=== PATIENT | female | born 1985 | race African-American/Black ===

== ENCOUNTER 2020-10-01 08:43 | Emergency (ER) | payer MEDICARE, MEDICAID ==
[2020-10-02 00:45] LABS: SARS-CoV-2 MS2 Positive; SARS-CoV-2 N Gene Negative; SARS-CoV-2 S Gene Negative; SARS-CoV-2 by NAA Not Detected (NotDetected); SARS-CoV-2 orf1ab Negative
== END 2020-10-01 10:00 | disposition home or self-care (01) ==
LOC: NAV ERS 08:43
DX: J02.9 Acute pharyngitis, unspecified (principal); Z20.828 Contact with and (suspected) exposure to other viral communicable diseases; F32.9 Major depressive disorder, single episode, unspecified; G43.909 Migraine, unspecified, not intractable, without status migrainosus; G35 Multiple sclerosis
CPT/HCPCS: 87635; 99283; U0003

== ENCOUNTER 2020-12-16 10:32 | Emergency (ER) | payer MEDICAID ==
[2020-12-16] MEDS ORDERED: Sodium Chloride 0.9% 1,000 ML ONE ×2 (11:08→12:19)
[2020-12-16 11:37] LABS: #Basophils 0.1 thou/uL (0.0-0.2); #Eosinphils 0.1 thou/uL (0.0-0.7); #Lymphocytes 2.4 thou/uL (1.20-3.40); #Monocytes 0.6 thou/uL (0.11-0.59); #Neutrophils 6.2 thou/uL (1.40-6.50); %Basophils 1.3 % (0.0-1.0); %Eosinophils 1.3 % (0.0-10.0); %Lymphocytes 25.7 % (21.0-51.0); %Monocytes 6.3 % (0.0-10.0); %Neutrophils 65.5 % (42.0-75.0); Hemoglobin 13.6 g/dL (12.0-16.0); Mean Corpuscular HGB CONC 31.1 g/dL (32.0-36.0); Mean Corpuscular Hemoglobin 25.5 pg (27.0-31.0); Mean Corpuscular Volume 81.8 fL (78.0-98.0); Mean Platelet Volume 9.1 fL (7.4-10.4); Platelet Count 213 thou/uL (130-400); RBC Distribution Width 14.7 % (11.5-14.5); Red Blood Cell (RBC) Count 5.34 mill/uL (4.20-5.40); White Blood Cell (WBC) Count 9.5 thou/uL (4.8-10.8)
[2020-12-16 11:45] LABS: ALT (SGPT) 19 U/L (8-55); AST (SGOT) 15 U/L (5-34); Alkaline Phosphatase 127 U/L (40-110); Anion Gap 20 mmol/L (10-20); BUN (Urea Nitrogen) 8 mg/dL (7.0-18.7); Bilirubin, Total 0.4 mg/dL (0.2-1.2); Calc. Creatinine Clearance 0 mL/min (70-130); Calcium 8.9 mg/dL (7.8-10.44); Carbon Dioxide 21 mmol/L (22-29); Chloride 95 mmol/L (98-107); Globulin 2.7 g/dL (2.4-3.5); Lipase 22 U/L (8-78); Potassium 4.4 mmol/L (3.5-5.1); Protein, Total 6.7 g/dL (6.0-8.3); Sodium 132 mmol/L (136-145)
[2020-12-16 11:46] LABS: Bilirubin Negative (Negative); Blood, Urine Negative (Negative); Clarity Clear (Clear); Glucose, Urine (Dipstick) 500 mg/dL (Negative); Ketone, Urine 80 mg/dL (Negative); Leukocyte Negative (Negative); Nitrite Negative (Negative); Protein, Urine (Dipstick) Negative (Neg-Trace); Urobilinogen 0.2 mg/dL (Less than 2); pH, Urine 5.5 (5.0-9.0)
[2020-12-16 11:48] LABS: Glucose 615 mg/dL (70-105)
[2020-12-16 11:53] LABS: Pregnancy Test - Urine (BHCG) Negative (Negative)
[2020-12-16 11:54] LABS: Pregu Control Background? CLEAR/WHITE (CLR/WHITE); Pregu Control Bar Appear? YES (CONTROL BAR)
[2020-12-16 14:57] LABS: SARS-CoV-2 NAA Rapid Test Not Detected (NotDetected)
[2020-12-16] MEDS ORDERED: Ondansetron PF 4 MG/2 ML Vial IVP PRN (15:00)
[2020-12-16] MEDS ORDERED: Acetaminophen 325 MG TAB PO PRN (15:00)
[2020-12-16] MEDS ORDERED: Ondansetron ODT 4 MG TAB SL PRN (15:00)
[2020-12-16 21:46] LABS: Hemoglobin A1c Greater than 14.0 % (4.0-6.0)
== END 2020-12-16 15:01 | disposition critical access hospital (66) ==
LOC: NAV ERS 10:32
DX: R73.9 Hyperglycemia, unspecified (principal); E86.0 Dehydration; Z20.822 Contact with and (suspected) exposure to COVID-19; R82.998 Other abnormal findings in urine; G35 Multiple sclerosis; G43.909 Migraine, unspecified, not intractable, without status migrainosus; D64.9 Anemia, unspecified
CPT/HCPCS: 0240U; 36416; 80053; 81003; 81025; 82010; 83036; 83605; 83690; 83735; 84484; 85025; 93005; 94760; J7050

== ENCOUNTER 2020-12-16 14:50 | Observation (INO) | payer MEDICAID ==
[2020-12-16 15:33] VITALS: BMI 38.3
[2020-12-16] MEDS ORDERED: Acetaminophen 325 MG TAB PO PRN (16:15)
[2020-12-16] MEDS ORDERED: Ondansetron PF 4 MG/2 ML Vial IVP PRN (16:15)
[2020-12-16] MEDS ORDERED: Ondansetron ODT 4 MG TAB SL PRN (16:15)
[2020-12-16] MEDS ORDERED: Dextrose 50% Abboject 50 ML SYRINGE IVP PRN (17:30)
[2020-12-16] MEDS ORDERED: HumaLOG 300 UNITS/3 ML VIAL SC PRN (17:30)
[2020-12-16] MEDS ORDERED: Dextrose 5% in Water 1,000 ML IV PRN (17:30)
[2020-12-16] MEDS: HumaLOG 300 UNITS/3 ML VIAL SC PRN (18:43)
[2020-12-17 07:25] LABS: Anion Gap 18 mmol/L (10-20); BUN (Urea Nitrogen) 12 mg/dL (7.0-18.7); Calc. Creatinine Clearance 107 mL/min (70-130); Calcium 8.3 mg/dL (7.8-10.44); Carbon Dioxide 18 mmol/L (22-29); Chloride 102 mmol/L (98-107); Glucose 415 mg/dL (70-105); Potassium 4.2 mmol/L (3.5-5.1); Sodium 134 mmol/L (136-145)
[2020-12-17] MEDS ORDERED: FLU VACC QS2020-21(6MOS UP)/PF 60 MCG/0.5 ML SYRINGE IM ONE (09:00)
[2020-12-17 11:26] LABS: Hemoglobin A1c Greater than 14.0 % (4.0-6.0)
[2020-12-17] MEDS: HumaLOG 300 UNITS/3 ML VIAL SC PRN (12:19)
[2020-12-17 12:58] VITALS: BP 120/66; TEMP 98
== END 2020-12-17 13:48 | disposition home or self-care (01) ==
LOC: NAV ACUTE 14:50
PROVIDERS: ADMIT Family Medicine; ATTEND Family Medicine
DX: R73.9 Hyperglycemia, unspecified (principal); E86.0 Dehydration; Z91.040 Latex allergy status; Z91.041 Radiographic dye allergy status
CPT/HCPCS: 0240U; 36416; 80048; 80053; 81003; 81025; 82010; 83036; 83605; 83690; 83735; 84484; 85025; 90471; 90662; 93005; 94760; G0008; G0378; J1815; J7050

== ENCOUNTER 2023-03-17 08:55 | Emergency (ER) | payer MEDICARE ==
[2023-03-17 09:47] LABS: Bilirubin Negative (Negative); Blood, Urine Trace (Negative); Clarity Clear (Clear); Glucose, Urine (Dipstick) Negative (Negative); Ketone, Urine Negative (Negative); Leukocyte Negative (Negative); Nitrite Positive (Negative); Protein, Urine (Dipstick) Negative (Neg-Trace); Urobilinogen 0.2 mg/dL (Less than 2); pH, Urine 5.5 (5.0-9.0)
[2023-03-17 09:52] LABS: Specific Gravity, Urine 1.025 (1.002-1.036)
[2023-03-17 09:55] LABS: Bacteria/HPF 2+ HPF (None Seen); RBC/HPF 0-3 HPF (0-3); Squamous Epithelial 0-3 HPF (0-3); WBC/HPF None Seen HPF (0-3)
[2023-03-17 10:01] LABS: Specific Gravity 1.025 (1.002-1.036)
[2023-03-17 10:04] LABS: Pregnancy Test - Urine (BHCG) Negative (Negative)
[2023-03-17 10:05] LABS: Pregu Control Background? CLEAR/WHITE (CLR/WHITE); Pregu Control Bar Appear? YES (CONTROL BAR)
[2023-03-17] MEDS ORDERED: traMADol HCl 50 MG TAB ONE (10:15)
[2023-03-17] MEDS ORDERED: Ketorolac Tromethamine 60 MG/2 ML VIAL ONE (10:15)
== END 2023-03-17 10:43 | disposition home or self-care (01) ==
LOC: NAV ERS 08:55
DX: S56.912A Strain of unspecified muscles, fascia and tendons at forearm level, left arm, initial encounter (principal); S39.012A Strain of muscle, fascia and tendon of lower back, initial encounter; E11.9 Type 2 diabetes mellitus without complications; Z79.4 Long term (current) use of insulin; X50.1XXA Overexertion from prolonged static or awkward postures, initial encounter
CPT/HCPCS: 72131; 81003; 81015; 81025; 96372; J1885

== ENCOUNTER 2023-11-09 18:41 | Emergency (ER) | payer MEDICARE, MEDICAID ==
[2023-11-09 20:07] LABS: #Basophils 0.1 thou/uL (0.0-0.2); #Eosinphils 0.2 thou/uL (0.0-0.7); #Lymphocytes 3.3 thou/uL (1.20-3.40); #Monocytes 0.6 thou/uL (0.11-0.59); #Neutrophils 5.5 thou/uL (1.40-6.50); %Basophils 0.6 % (0.0-1.0); %Eosinophils 1.8 % (0.0-10.0); %Lymphocytes 34.6 % (21.0-51.0); %Neutrophils 56.9 % (42.0-75.0); Hematocrit 39.9 % (36.0-47.0); Mean Corpuscular HGB CONC 32.6 g/dL (32.0-36.0); Mean Corpuscular Hemoglobin 28.1 pg (27.0-31.0); Mean Corpuscular Volume 86.1 fl (78.0-98.0); Mean Platelet Volume 7.3 fL (7.4-10.4); Platelet Count 221 10x3/uL (130-400); Red Blood Cell (RBC) Count 4.64 mill/uL (4.20-5.40); White Blood Cell (WBC) Count 9.6 10x3/uL (4.8-10.8)
[2023-11-09 20:26] LABS: Troponin I Less than 0.010 ng/mL (< 0.028)
[2023-11-09 20:47] LABS: ALT (SGPT) 15 U/L (8-55); AST (SGOT) 16 U/L (5-34); Albumin 3.7 g/dL (3.5-5.0); Alkaline Phosphatase 89 U/L (40-110); Anion Gap 14 mmol/L (10-20); BUN (Urea Nitrogen) 9 mg/dL (7.0-18.7); Bilirubin, Total 0.2 mg/dL (0.2-1.2); Calc. Creatinine Clearance 0 mL/min (70-130); Calcium 8.4 mg/dL (7.8-10.44); Carbon Dioxide 21 mmol/L (22-29); Chloride 106 mmol/L (98-107); Estimated GFR 96; Globulin 2.6 g/dL (2.4-3.5); Glucose 140 mg/dL (70-105); Potassium 3.9 mmol/L (3.5-5.1); Protein, Total 6.3 g/dL (6.0-8.3); Sodium 137 mmol/L (136-145)
== END 2023-11-09 21:25 | disposition home or self-care (01) ==
LOC: NAV ERS 18:41
DX: M79.89 Other specified soft tissue disorders (principal)
CPT/HCPCS: 36415; 71046; 80053; 83880; 84484; 85025; 93005